=== PATIENT | male | born 1945 | race Caucasian/White ===

== ENCOUNTER 2016-06-30 09:24 | Outpatient (CLI) | payer MEDICARE, OTHER | END 2016-06-30 09:25 | disposition home or self-care (01) | DX: G47.33 Obstructive sleep apnea (adult) (pediatric) (principal) | CPT/HCPCS: 99213; G0463 ==

== ENCOUNTER 2016-08-13 15:25 | Outpatient (CLI) | payer MEDICARE, OTHER | END 2016-08-13 15:26 | disposition home or self-care (01) | LOC: SC 15:25 | PROVIDERS: ATTEND Nurse Practitioner Family | DX: G47.33 Obstructive sleep apnea (adult) (pediatric) (principal) | CPT/HCPCS: 99213; G0463; 99212 ==

== ENCOUNTER 2019-02-15 09:07 | Outpatient (CLI) | payer MEDICARE, OTHER ==
--- NOTE | 2019-02-15 11:36 | SLEEP CARE CONSULTATION ---
Information from patient questionnaire entered by Anjana Kaplan. I have reviewed and concur with the information entered by Anjana Kaplan. This document represents the service I personally performed and the decisions made by me, Carlos Nino MD, [facility]. 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 He was diagnosed to have severe obstructive sleep apnea-hypopnea syndrome. The patient wears a Respironics Wisp nasal mask. He continues to use the device nightly and all through the night. The compliance report shows usage in 179 nights out of the past 180 nights, averaging 8.2 hours a night. He complained of not having gotten any supplies for almost 2 years but no particular problem with the device such as soreness on the face, dry nose, epistaxis, nasal congestion or headache. He thinks that the pressure of 8 12 cmH2O is comfortable. On the CPAP therapy he notices improvement in his sleep quality, and that he wakes up feeling fresher in the morning and more awake/alert during the day. His notices no snore at all. The average residual AHI is 2.9; and average time in large leak per day is 4 seconds. The 90th percentile pressure is 10.1 cmH2O. CPAP Compliance Data - Data Reviewed with Patient Average duration of nightly device use: 8H 12M Compliance rate %: 94.4 Current pressure setting (cmH2O): 8-12 Humidity settin Heated hose settin Average residual AHI: 2.9 Average large leak: 4s Subjective Patient concerns: reports: other ( complaining of air leaking when supine) Initial [place] Sleepiness Scale score: 2 Current [place] Sleepiness Scale score: 0 Allergies and Home Medications Drug allergies reviewed: Yes Home medication list reviewed: Yes Review of Systems Review of systems same as previous: Yes Physical Exam Weight: 190 lb Impression and Plan IMPRESSION: 1. Obstructive Sleep Apnea-Hypopnea Syndrome, severe, with the patient doing w ell on nasal CPAP therapy. He has excellent compliance and significant clinical improvement despite lack of CPAP supplies. The current pressure appears effective and comfortable. Overall, he is very satisfied with treatment and plans to continue with it long-term. Prescription will be made out to [facility] for more supplies. PLAN: 1. Continue with autoCPAP set at 8 - 12 cmH2O. 2. Prescription made for supplies. If he still unable to get supplies from [facility], he will switch durable medical supplier. 3. Return in one year for follow up or earlier if there is any problem with the treatment. I spent 100% of this 20 minute visit face to face with the patient with greater than 50% of this was spent time counseling the patient and coordination of care.
== END 2019-02-15 09:08 | disposition home or self-care (01) ==
LOC: SC 09:07
PROVIDERS: ATTEND Internal Medicine Pulmonary Disease
DX: G47.33 Obstructive sleep apnea (adult) (pediatric) (principal)
CPT/HCPCS: 99213; G0463; 99212

== ENCOUNTER 2020-01-31 09:38 | Outpatient (CLI) | payer MEDICARE, OTHER ==
--- NOTE | 2020-01-31 13:24 | SLEEP CARE CONSULTATION ---
Information from patient questionnaire entered by Anjana Kaplan. I have reviewed and concur with the information entered by Anjana Kaplan. This document represents the service I personally performed and the decisions made by me, Carlos Nino MD, [facility]. 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 He was diagnosed to have severe obstructive sleep apnea-hypopnea syndrome. The patient wears a RespironicPirq Wisp nasal mask. He continues to use the device nightly and all through the night. The compliance report shows usage in 363 nights out of the past 365 nights, averaging 8.6 hours a night. He complained of not having gotten any supplies for almost 2 years but no particular problem with the device such as soreness on the face, dry nose, epistaxis, nasal congestion or headache. He thinks that the pressure of 8 12 cmH2O is comfortable. On the CPAP therapy he notices improvement in his sleep quality, and that he wakes up feeling fresher in the morning and more awake/alert during the day. [place] Sleepiness Scale score is 2. His notices no snore at all. The average residual AHI is 3.2; and average time in large leak per day is 4 seconds. The 90th percentile pressure is 10.4 cmH2O. He complains of not getting supplies and his headgear is stretched. He needs the filters also. Sleep Study - Results Prior sleep studies: Yes CPAP Compliance Data - Data Reviewed with Patient Average duration of nightly device use: 8 hours 58 minutes Compliance rate %: 98.9 Current pressure setting (cmH2O): 8-12 Humidity settin Heated hose settin Average residual AHI: 3.3 Average large leak: 4 seconds Subjective Patient concerns: reports: mask leak noise, other (dirty filter, difficult to replace headgear) Initial [place] Sleepiness Scale score: 2 Current [place] Sleepiness Scale score: 2 Physical Exam Vital signs obtained and entered by: To minimize the risk of COVID-19 exposure, detailed exam was not performed. Weight: 185 lb Impression and Plan IMPRESSION: 1. Obstructive Sleep Apnea-Hypopnea Syndrome, severe, with the patient continuing to do well on nasal CPAP therapy. He has excellent compliance and significant clinical improvement despite lack of CPAP supplies. The current pressure appears effective and comfortable. Overall, he is very satisfied with treatment and plans to continue with it long-term. Prescription will be to [facility] to switch him from his current durable medical supplier. PLAN: 1. Continue with autoCPAP set at 8 - 12 cmH2O. 2. Prescription made for supplies. 3. A new complete Respironics Wisp nasal mask set was given to him to take home. 3. Return in one year for follow up or earlier if there is any problem with the treatment. Visit Type: In Office Time Spent with Patient (minutes): 15 Provider Statement: I spent 100% of the Face to Face Visit with the patient with greater than 50% spent counseling the patient and coordination of care.
== END 2020-01-31 09:39 | disposition home or self-care (01) ==
LOC: SC 09:38
PROVIDERS: ATTEND Internal Medicine Pulmonary Disease
DX: G47.33 Obstructive sleep apnea (adult) (pediatric) (principal)
CPT/HCPCS: 99213; G0463; 99212

== ENCOUNTER 2021-07-01 09:35 | Outpatient (CLI) | payer MEDICARE, OTHER ==
--- NOTE | 2021-07-01 12:25 | SLEEP CARE CONSULTATION ---
Information from patient questionnaire entered by Sydnee Rausch MA. I have reviewed and concur with the information entered by Sydnee Rausch MA. This document represents the service I personally performed and the decisions made by me, Carlos Nino MD, [facility]. 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 He now resides in [place]. He was diagnosed to have severe obstructive sleep apnea- hypopnea syndrome. The patient wears a Respironics Wisp nasal mask. He continues to use the device nightly and all through the night. The compliance report shows usage in 30 nights out of the past 30 nights, averaging 9.6 hours a night. He complained of not having gotten any supplies since he left [facility]. No particular problem with the device such as soreness on the face, dry nose, epistaxis, nasal congestion or headache. He thinks that the pressure of 8 12 cmH2O is comfortable. On the CPAP therapy he notices improvement in his sleep quality, and that he wakes up feeling fresher in the morning and more awake/alert during the day. [place] Sleepiness Scale score is 1. His notices no snore at all. The average residual AHI is 3.6; and average time in large leak per day is 3 minutes and 16 seconds. The 90th percentile pressure is 10.0 cmH2O. Sleep Study - Results Type of Sleep Study: Home sleep study Prior sleep studies: Yes Year and Where: 04/2011 home sleep test CPAP Compliance Data - Data Reviewed with Patient Average duration of nightly device use: 9 HOURS 38 MINUTES Compliance rate %: 100 Current pressure setting (cmH2O): 8-12 Humidity settin Heated hose settin Average residual AHI: 3.6 Average large leak: 3 MINUTES 16 SECONDS Subjective Initial [place] Sleepiness Scale score: 2 Allergies and Home Medications Drug allergies reviewed: Yes Home medication list reviewed: Yes Physical Exam Vital signs obtained and entered by: Markie RAUSCH CMA AAMA Impression and Plan IMPRESSION: 1. Obstructive Sleep Apnea-Hypopnea Syndrome, severe, with the patient continuing to do well on nasal CPAP therapy. He has excellent compliance and significant clinical improvement despite lack of CPAP supplies. The current pressure appears effective and comfortable. Overall, he is very satisfied with treatment and plans to continue with it long-term. For supplies, he should contact his current durable medical supplier [facility]. I will also send him a prescription for supplies to his local durable medical supplier of his choice. PLAN: 1. Continue with autoCPAP set at 8 - 12 cmH2O. 2. Prescription made for supplies. He will let us know where to send it. 3. Return in one year for follow up or earlier if there is any problem with the treatment. 4. An FAA form was filled out 2 weeks ago. Continue with device pressure at (cmH2O): 8 - 12 Mask provided: No Prescriptions: Device supplies Follow up with Sleep Care in: 1 year Visit Type: Telehealth ) Patient Location: Home Location of Provider: Office Patient agrees and consents to this telehealth visit type: Yes Patient agrees to have their insurance billed: Yes Time Spent with Patient (minutes): 15 Provider Statement: I spent 100% of the Telehealth Phone Call with the patient with greater than 50% spent counseling the patient and coordination of care.
== END 2021-07-01 09:36 | disposition home or self-care (01) ==
LOC: SC 09:35
PROVIDERS: ATTEND Internal Medicine Pulmonary Disease
DX: G47.33 Obstructive sleep apnea (adult) (pediatric) (principal)

== ENCOUNTER 2023-03-26 17:00 | Outpatient (CLI) | payer MEDICARE, OTHER ==
--- NOTE | 2023-03-27 11:37 | XRAY Report ---
PROCEDURE: Chest 2V INDICATIONS: COUGH TECHNIQUE: 2 views of the chest were acquired. COMPARISON: None. FINDINGS: Surgical changes and devices: None. Lungs and pleura: No pleural effusions or pneumothorax. Lungs are clear. Mediastinum: Mediastinal contours appear normal. Heart size is mildly enlarged. Bones and chest wall: No suspicious bony lesions. Overlying soft tissues appear unremarkable. IMPRESSION: No acute cardiopulmonary process. Reviewed by: Lesly Pearce MD on 03/27/2023 11:36 AM [facility] Approved by: Lesly Pearce MD on 03/27/2023 11:36 AM [facility] Station ID: [id number]
== END 2023-03-26 17:01 | disposition home or self-care (01) ==
LOC: DI 17:00
PROVIDERS: ATTEND Internal Medicine
DX: R05.9 Cough, unspecified (principal)

== ENCOUNTER 2023-05-20 10:35 | Outpatient (CLI) | payer MEDICARE, OTHER ==
--- NOTE | 2023-05-20 11:22 | Sleep Patient Instructions ---
Sleep Center Visit Summary - Patient Visit Information Reason for Visit: Annual follow-up - Patient Instructions Additional Instructions: You will continue with CPAP therapy with pressure set at 8-12 cmH2O. A supply prescription will be updated with addition of a new CPAP with your chose new DME supplier. Please call us to schedule a compliance follow up after you get your new CPAP. We encourage you to continue to try to lose weight. Please follow up with the sleep care office one month after obtaining new machine. - Clinic Information Contact: [facility] [address] [place] [address] [email or web address] T: [phone]
--- NOTE | 2023-05-20 11:31 | SLEEP CARE CONSULTATION ---
Information from patient questionnaire entered by Wiliam Rice. I have reviewed and concur with the information entered by Wiliam Rice. This document represents the service I personally performed and the decisions made by me, Portia Webber ARNP. History of Present Illness Service Date and Time: 05/20/2023 1035 Previous diagnosis: Severe, Obstructive Sleep Apnea-Hypopnea Syndrome AHI: 34.4 Reason for follow up: other (LAST SEEN 06/2021) Equipment type: CPAP (Dreamstation) Equipment obtained from: Other (was in [place], [place]) Mask style: Nasal Mask brand: Respironics (Wisp) Backup mask available: No (needs supplies) Prior sleep studies: Yes Year and Where: 04/2011 home sleep test Type of Sleep Study: Home sleep study HPI additional information: BACILIO ZAPATA was diagnosed to have severe, AHI 34.4, obstructive sleep apnea- hypopnea syndrome and returned today for CPAP therapy annual follow-up. Sleep Study - Results Type of Sleep Study: Home sleep study Prior sleep studies: Yes Year and Where: 04/2011 home sleep test CPAP Compliance Data - Data Reviewed with Patient Average duration of nightly device use: 8 hours 39 minutes Compliance rate %: 83.3 (02/19/23-05/19/23; 83/90 days used) Current pressure setting (cmH2O): 8-12 Average residual AHI: 2.7 Central apnea: 0.3 Obstructive apnea: 0.9 Hypopnea: 1.5 Average large leak: 14 secs Subjective Patient concerns: denies: aerophagia, mask discomfort, air blowing in eyes, mask leak noise, condensation in mask/hose, nasal congestion, dry mouth, nose, throat, epistaxis Observed to snore while using device: Yes (interferes with 's sleep) Current pressure setting perceived as: comfortable On therapy, patient: reports: sleeping better, awakening more refreshed, being more awake and alert during the day, more rested overall. denies: drowsiness while driving Initial [place] Sleepiness Scale score: 2 Current [place] Sleepiness Scale score: 2 (05/20/23) Allergies and Home Medications Known drug allergies: Yes (has lots but does not remember their names) Drug allergies reviewed: Yes Home medication list reviewed: Yes (no changes) Allergy and home medication list: Home Medications Medication Instructions Recorded Confirmed Last Taken Type Aspirin [Aspirin EC] See Rx Instructions .ROUTE .COMPLEX 05/20/23 05/20/23 Unknown History Losartan [Cozaar] See Rx Instructions .ROUTE .COMPLEX 05/20/23 05/20/23 Unknown History hydroCHLOROthiazide See Rx Instructions .ROUTE .COMPLEX 05/20/23 05/20/23 Unknown History [Hydrochlorothiazide] Review of Systems Review of systems same as previous: Yes (NO CHANGE) Physical Exam Vital signs obtained and entered by: WILIAM Mayo MA Blood Pressure: 148/79 (LEFT ARM) Cuff size: regular Heart Rate: 68 O2 Saturation: 98 Height: 5 ft 4 in Weight: 185 lb 12.8 oz Body Mass Index: 31.8 BMI Classification: Obese Impression and Plan 1. Obstructive Sleep Apnea-Hypopnea Syndrome, severe, with good treatment compliance and good apnea control. On CPAP therapy, the patient has better sleep quality and is more rested overall. He has a Dreamstation that is on may be on the recall and is registered with them that he got before 2019. He has not noted any black debris in his CPAP. The patients CPAP is over 5 years old and of reasonable use. Thus, the CPAP will be updated. He needs a CPAP supplier. I will have my emergency preparedness coordinator inform of DME options. A [facility]O prescription will then be made. Compliance guidelines for new device and follow up discussed. Patient's apnea severity and rationale for treatment to reduce apnea, improve sleep quality and reduce cardiovascular and cerebrovascular events was reviewed. I also reviewed the benefit of consistent device use of CPAP for hypertension and gastric reflux. 2. Obesity, unspecified. Currently patients BMI is 31.8. Obesity increases the risk of apnea, CPAP pressure requirements and overall health risks especially cardiovascular and diabetes. Thus patient is advised to lose weight. * Continue auto CPAP pressure at 8-12 cmH2O * Update machine * Update supply prescription * Notify me if snoring with mask or feeling that the pressure is too much or too little * Attempt to lose weight * Call this office if any problems using CPAP * Return for follow up one month after obtaining new CPAP, or sooner if concerns arise Counseling Topics: Spare mask, Weight loss health impact Prescriptions: Auto CPAP, Device supplies Follow up with Sleep Care in: other (compliance follow up with new CPAP) Visit Type: In Office Time Spent with Patient (minutes): 23 Provider Statement: I spent 100% of the Face to Face Visit with the patient with greater than 50% spent counseling the patient and coordination of care.
[2023-05-20 11:51] VITALS: BP 148/79; O2SAT 98
== END 2023-05-20 10:36 | disposition home or self-care (01) ==
LOC: SC 10:35
PROVIDERS: ATTEND Nurse Practitioner Family
DX: G47.33 Obstructive sleep apnea (adult) (pediatric) (principal); E66.9 Obesity, unspecified; Z68.31 Body mass index [BMI] 31.0-31.9, adult
CPT/HCPCS: 99213; G0463; 99212

== ENCOUNTER 2023-06-24 12:00 | Outpatient (CLI) | payer MEDICARE, OTHER ==
--- NOTE | 2023-06-24 19:47 | XRAY Report ---
PROCEDURE: Chest 2V INDICATIONS: PERSISTENT COUGH TECHNIQUE: 2 views of the chest were obtained. COMPARISON: None. FINDINGS: Surgical changes and devices: None. Lungs and pleura: No pleural effusions or pneumothorax. Lungs are clear. Mediastinum: Mediastinal contours appear normal. Heart size is enlarged. Atherosclerotic vascular c alcification noted in the aortic arch. Bones and chest wall: No suspicious bony lesions. Overlying soft tissues appear unremarkable. IMPRESSION: Cardiomegaly with atherosclerotic vascular calcification without acute cardio pulmonic findings Reviewed by: Jose Rafael Nolan MD on 06/24/2023 6:46 PM [facility] Approved by: Jose Rafael Nolan MD on 06/24/2023 6:46 PM [facility] Station ID: [id number]
== END 2023-06-24 12:15 | disposition home or self-care (01) ==
LOC: DI.N 12:00
PROVIDERS: ATTEND Family Medicine
DX: R05.3 Chronic cough (principal); I51.7 Cardiomegaly; I70.0 Atherosclerosis of aorta